=== PATIENT | female | born 2000 | race Caucasian/White ===

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

== ENCOUNTER 2019-01-23 12:44 | Day surgery (SDC) | payer OTHER ==
[~2019-01-23] VITALS: Ht 162.6 cm; Wt 71.5 kg
[~2019-01-23 12:44] MED LIST: ADDERALL XR25 MG PO; ZOFRAN ODT4 MG PO
[2019-01-23 13:38] LABS: COLLECTION METHOD CLEAN CATCH
[2019-01-23 14:04] LABS: MUCOUS Present /lpf; PH 6 (5-8); URINE APPEARANCE Cloudy; URINE BACTERIA Rare /hpf; URINE BILIRUBIN Negative (NEGATIVE); URINE BLOOD 2+ (NEGATIVE); URINE CALCIUM OXALATE CRYSTAL Present /hpf; URINE COLOR Yellow; URINE GLUCOSE Negative (NEGATIVE); URINE KETONE Trace (NEGATIVE); URINE LEUKOCYTE ESTERASE Trace (NEGATIVE); URINE NITRATE Negative (NEGATIVE); URINE PROTEIN(semi-quant) 1+ (NEGATIVE); URINE RBC >50 /hpf; URINE UROBILINOGEN Negative (NEGATIVE)
[2019-01-23 14:14] LABS: BASO % 0.4 % (0.0-2.0); EOS % 0.4 % (0-4.0); GRAN # 6.1 (1.4-6.5); GRAN % 68.2 % (42.2-75.2); HEMATOCRIT 45.3 % (35.0-45.0); HEMOGLOBIN 15.7 g/dl (12.0-15.0); LYMPH # 2.3 (1.2-3.4); LYMPH % 25.6 % (20.0-51.0); MEAN CELL VOLUME 86 fl (80.0-95.0); MEAN CORPUSCULAR HEMOGLOBIN 30 pg (26.0-32.0); MEAN CORPUSCULAR HGB CONC 35 g/dl (33.0-37.0); MEAN PLATELET VOLUME 9.5 fl (7.4-10.4); MONO # 0.5 (0.1-0.6); MONO % 5.2 % (1.7-9.3); PLATELET COUNT 280 K/mm3 (130-400); REDCELL DISTRIBUTION WIDTH-CV 12.9 % (11.5-14.5)
[2019-01-23 14:25] LABS: ALBUMIN 4.2 gm/dL (3.5-5.0); BILIRUBIN,TOTAL 0.5 mg/dL (0.0-1.0); CALCIUM 9.2 mg/dL (8.4-10.2); CREATININE, serum 0.77 (0.52-1.25); POTASSIUM 3.8 mmol/L (3.4-5.0); TOTAL PROTEIN 7.6 gm/dL (6.4-8.2)
[2019-01-23 18:36] VITALS: BP 126/80; PULSE 91; TEMP 97.7
--- NOTE | 2019-01-23 19:26 | NUR ---
Patient up from ER, Dr. Garcia in to see patient. Patient and family oriented to room. Denies needs at this time. 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
[2019-01-23 20:00] VITALS: BP 127/83; PULSE 89; TEMP 98.2
--- NOTE | 2019-01-23 22:16 | NUR ---
Patient and father educated on [employer], dosages, timeouts, end tidal CO2, and that no additional pain medication will be given while on the [employer]. Verification with ROQUE Wiggins, ROQUE Alberto, and myself to setting of Morphine [employer]. [employer] connected at this time. Patient and father assist in completing assessment. At end patient drowsy but will respond when name called out. Patient and father educated on importance of straining urine. Patient verbalizes understanding and denies further needs at this time.
[2019-01-23 22:30] VITALS: BP 123/73; PULSE 82
[2019-01-23 22:47] VITALS: BP 121/78; PULSE 96
[2019-01-23 23:00] VITALS: BP 122/72; PULSE 86
--- NOTE | 2019-01-23 23:00 | NUR ---
Lying in bed on right side. Responds when name called out. 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 Father remains in room at bedside. Patient denies further needs at this time.
[2019-01-24] VITALS (14 sets, daily range): BP systolic 99–127; BP diastolic 55–87; PULSE 85–111; TEMP 97.7–98.7
--- NOTE | 2019-01-24 00:20 | NUR ---
Lying in bed with eyes closed. Eyes open when name called. Rates pain 5/10 to right flank area, patient says that it is better than it was. Ambulates at this time to bathroom to void. Gait steady. Urine strained, no stone. Returns to bed. Father continues to remain at bedside. Patient denies further needs at this time.
--- NOTE | 2019-01-24 02:23 | NUR ---
Assisted patient up to bathroom. Voids 200mL clear light yellow urine. Returns to bed. Urine strained, no stone noted. When patient asked to rate pain she states "I don't want to jinx it." Father still in room at bedside. Patient denies further needs at this time.
--- NOTE | 2019-01-24 05:41 | NUR ---
Lying in bed on right side. Patient with minimal discomfort. Laughing and able to joke around. Dad in room at bedside. Patient denies further needs at this time.
--- NOTE | 2019-01-24 07:14 | NUR ---
Report provided to ROQUE Slade.
--- NOTE | 2019-01-24 09:50 | NUR ---
Patient alert and oriented, answers questions appropriately. See assessment. No c/o flank or abdominal pain. No c/o urinary frequency, burning or hesitancy. ROVING [employer]AME T[employer]ER Morphine infusing, settings verified against the MAR. No other c/o at this time.
--- NOTE | 2019-01-24 13:24 | NUR ---
First visit from the osteology teacher. No needs right now.
--- NOTE | 2019-01-24 16:00 | NUR ---
Patient returns from stent placement. Post op vitals initiated. No change in assessment.
--- NOTE | 2019-01-24 18:30 | NUR ---
Discharge instructions reviewed with patient and family, verbalized understanding. Discharged ambulatory to auto/home with family at 1820.
== END 2019-01-24 18:20 | disposition home or self-care (01) ==
LOC: COL.ER 12:44 → SURG 16:44 → SDCO 16:44 → COL.ER 16:44 → SURG 01-24 18:20 → SDCO 01-24 18:20
PROVIDERS: Emergency Medicine
DX: N20.1 Calculus of ureter (principal); F90.9 Attention-deficit hyperactivity disorder, unspecified type; G43.909 Migraine, unspecified, not intractable, without status migrainosus
CPT/HCPCS: A4216; C1769; C2617; G0378; J0690; J0696; J1100; J1170; J1885; J2270; J2405; J2550; J2704; J3010; J7030; J7120; Q9967